=== PATIENT | female | born 1980 | race Caucasian/White ===

== ENCOUNTER 2018-11-14 11:14 | Emergency (ER) | payer MEDICAID ==
[~2018-11-14] VITALS: Ht 172.7 cm; Wt 95.4 kg
[2018-11-14 11:48] LABS: CLARITY,URINE CLEAR (Clear); COLOR,URINE YELLOW (Yellow); GLUCOSE, URINE NEGATIVE (Neg); KETONES,URINE NEGATIVE (Neg); LEUKOCYTE ESTERASE ,URINE NEGATIVE (Neg); NITRITES, URINE NEGATIVE (Neg); OCCULT BLOOD,URINE NEGATIVE (Neg); PH,URINE 6.5 (4.8-8.0); PROTEIN,URINE NEGATIVE (Neg); UROBILINOGEN,URINE 0.2 E.U/dL (0.2-1.0)
[2018-11-14 11:49] LABS: UA COLLECTION TYPE CLN CATCH MIDSTREAM
[2018-11-14 11:59] LABS: URINE HCG NEGATIVE (NEG)
[2018-11-14 12:09] LABS: BASOPHILS % (AUTO) 0.5 % (0-1); EOSINOPHILS # (AUTO) 0.3 X10'3 (0-0.9); EOSINOPHILS % (AUTO) 2.9 % (0-6); HEMATOCRIT 42.9 % (35.0-45.0); HEMOGLOBIN 14.6 g/dl (12.0-16.0); LYMPHOCYTES # (AUTO) 2.8 X10'3 (1.1-4.8); LYMPHOCYTES % (AUTO) 32.4 % (21-51); MEAN CORPUSCULAR HEMOGLOBIN 31.4 PG (27.0-31.0); MEAN CORPUSCULAR HGB CONC 34.1 g/dL (33.0-36.5); MEAN PLATELET VOLUME 9.1 FL (7.4-10.4); MONOCYTES # (AUTO) 0.5 X10'3 (0-0.9); MONOCYTES % (AUTO) 5.7 % (2-12); NEUTROPHILS # (AUTO) 5.1 X10'3 (1.8-7.7); NEUTROPHILS % (AUTO) 58.5 % (42-75); PLATELET COUNT 291 X10'3 (140-440); RED BLOOD COUNT 4.66 X10'6 (4.20-5.60); RED CELL DISTRIBUTION WIDTH 13.6 % (11.5-14.5); WHITE BLOOD COUNT 8.7 X10'3 (4.5-11.0)
[2018-11-14 12:23] LABS: ANION GAP 8 (8-16); BLOOD UREA NITROGEN 12 MG/DL (7-18); CHLORIDE 103 MMOL/L (99-107); CREATININE 0.92 MG/DL (0.40-0.90); GLUCOSE 98 MG/DL (70-104); SODIUM 138 MMOL/L (135-145); TOTAL CARBON DIOXIDE 27.2 MMOL/L (24-32)
[2018-11-14 12:24] LABS: ALANINE AMINOTRANSFERASE 25 U/L (12-78); ALBUMIN 4.5 G/DL (3.4-5.0); ALBUMIN/GLOBULIN RATIO 1.4 (1.1-1.5); ALKALINE PHOSPHATASE 87 IU/L (46-116); ASPARTATE AMINO TRANSFERASE 10 U/L (10-37); BILIRUBIN,TOTAL 0.4 MG/DL (0.1-1.0); CALCIUM 9.2 MG/DL (8.5-10.1); LIPASE 128 U/L (73-393); TOTAL PROTEIN 7.8 G/DL (6.4-8.2); eGFR 68 ML/MIN
--- NOTE | 2018-11-14 13:35 | NUR ---
PATIENT STAES "THIS PAIN": POINTS TO LOWER ABDOMEN HAS BEEN NONSTOP FOR THE LAST 5 DAYS DESPITE BEING PRESCRIBED NAPROXEN 550 MG BID AND DOXYCYCLINE 100 MG BID FROM PMD THISS LAST SATURDAY: HAD VAGINAL EXAM BY PMD THEN. RECORDS EXAMINED BY MYSELF AND VENKATESH MATTHEWS FROM PATIENT'S VISIT TO THE ER AT [facility]: WNL PELVIC ULTRASOUND, WET MOUNT NEGATIVE EXCEPT FOR 1 WBC. PATIENT HAS HAD A LEEP AND CONE BIOPSY, [place]LAMYDIA 8 YEARS AGO, AND TREATMENT FOR BACTERIAL VAGINOSIS LAST MONTH. PATIENT C/O LOWER ABDOMINAL PAIN ON BOTH SIDES ACHING THAT DOES NOT GO AWAY. PATIENT HAS HAD IRREGULAR HEAVY MENSES FOR THELAST 6 MONTHS. BLEEDING AT TIMES WITH INTERCOURSE
[2018-11-14 13:57] VITALS: BP 132/73
--- NOTE | 2018-11-14 14:13 | NUR ---
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
[2018-11-14] MEDS ORDERED: ketorolac tromethamine 15mg/ml inj. IM ONE (15:05)
[2018-11-14] MEDS ORDERED: ONDA4TAB6 PO (15:08)
== END 2018-11-14 15:30 | disposition home or self-care (01) ==
LOC: ER 11:14
DX: R10.84 Generalized abdominal pain (principal); N93.9 Abnormal uterine and vaginal bleeding, unspecified; Z98.51 Tubal ligation status; Z79.899 Other long term (current) drug therapy
CPT/HCPCS: 36415; 80053; 81003; 81025; 83690; 85025; 85610; 96372; 99283; J1885